=== PATIENT | female | born 2000 ===

== ENCOUNTER 2020-06-13 21:49 | Outpatient (REF) | payer BC, SELFPAY ==
[2020-06-13 22:05] LABS: ALT 22 U/L (14-59); AST 14 U/L (15-37); Albumin 4.7 g/dL (3.4-5.0); Alkaline Phosphatase 119 U/L (46-116); Anion Gap 10.8 mmol/L (3-11); BUN 8 mg/dL (7-18); Bilirubin, Total 0.3 mg/dL (0.2-1.0); CO2 26.2 mmol/L (21.0-32.0); CREATININE 0.8 mg/dL (0.55-1.02); Calcium 9.5 mg/dL (8.5-10.1); Chloride 102 mmol/L (98-107); Glucose 98 mg/dL (74-106); Potassium 3.3 mmol/L (3.5-5.1); Sodium 139 mmol/L (136-145); Total Protein 8.1 g/dL (6.4-8.2)
[2020-06-13 22:38] LABS: Abs Immature Grans 0.09 10^3/uL (0.0-0.06); Absolute Basophil Count 0.04 10^3/uL (0.0-0.2); Absolute Eosinophil Count 0.29 10^3/uL (0.0-0.7); Absolute Lymphocyte Count 5.23 10^3/uL (1.2-3.4); Absolute Monocyte Count 1.08 10^3/uL (0.1-0.8); Absolute Neutrophil Count 12.56 10^3/uL (1.2-6.7); Basophils % 0.2; Eosinophils % 1.5; HCT 47.3 % (36.0-46.0); HGB 16.8 g/dL (11.2-15.7); Immature Grans % 0.5; Lymphocytes % 27.1; MCH 33.7 pg (27.0-33.0); MCHC 35.5 % (32.0-36.0); MCV 94.8 fL (80-95); MPV 11.4 fL (8.0-11.0); Monocytes % 5.6; Neutrophils % 65.1; Nucleated RBC 0 %; Platelet Count 366 10^3/uL (130-400); RBC 4.99 10^6/uL (3.93-5.22); WBC 19.29 10^3/uL (4.4-10.8)
[2020-06-13 22:46] LABS: Diff Comment Agrees w/ Instrument; RBC Morphology Normal
== END 2020-06-13 21:50 | disposition home or self-care (01) ==
LOC: NCHCN 21:49
PROVIDERS: Visit Provider Nurse Practitioner Community Health
DX: R11.10 Vomiting, unspecified (principal)
CPT/HCPCS: 80053; 85025